=== PATIENT | female | born 1965 | race African-American/Black ===

== ENCOUNTER 2022-08-27 17:07 | Observation (INO) | payer MEDICARE, MEDICAID ==
[2022-08-27] VITALS (10 sets, daily range): BP systolic 142–182; BP diastolic 78–105
[~2022-08-27] VITALS: Ht 162.6 cm; Wt 77.1 kg
[2022-08-27 18:04] LABS: GFR FOR AFR.AMER. > 60 ML/MIN (>=60 (CALC)); GFR OTHER RACES > 60 ML/MIN (>=60 (CALC))
[2022-08-27 18:05] LABS: BASO% 0.5 % (0-3); HEMATOCRIT 43.5 % (37.0-47.0); HEMOGLOBIN 12.7 g/dl (12.0-16.0); IMMATURE GRANULOCYTES 0.2 % (0.0-5.0); LYMPH% 44.7 % (15-41); MEAN CELL VOLUME 73.1 fL CALC (80.0-100.0); MEAN CORPUSCULAR HGB 21.3 pG CALC (26.0-32.0); MEAN CORPUSCULAR HGB CONC 29.2 g/dL CAL (32.0-36.0); MONO% 8.1 % (2-13); NEUT# 2.94 thou/uL (2.00-7.15); NEUT% 44.5 % (42-76); RED BLOOD COUNT 5.95 mill/uL (4.20-5.60); RED CELL DISTRI WIDTH 14.4 % (11.5-15.5)
[2022-08-27 18:19] LABS: ALBUMIN 4.6 g/dL (3.2-5.0); ALKALINE PHOSPHATASE 107 u/l (38-126); ANION GAP 13 (6-22 (CALC)); BILIRUBIN, TOTAL 0.7 mg/dL (0.02-1.3); BUN 16 mg/dL (7-17); BUN/CREATININE RATIO 32 (12-20 (CALC)); CARBON DIOXIDE 24 mmol/l (22-30); CHLORIDE 105 mmol/l (95-108); CREATININE 0.5 mg/dL (0.5-1.0); GFR FOR AFR.AMER. > 60 ML/MIN (>=60 (CALC)); GFR OTHER RACES > 60 ML/MIN (>=60 (CALC)); POTASSIUM 4.6 mmol/l (3.5-5.1); SGOT/AST 53 u/l (14-36); SODIUM 137 mmol/l (137-146); TOTAL PROTEIN 8.7 g/dL (6.3-8.2)
[2022-08-27 18:22] LABS: PROTHROMBIN TIME 9.9 SECONDS (9.0-12.5)
[2022-08-27 21:23] LABS: URINE BILIRUBIN - DIPSTICK NEGATIVE (NEGATIVE); URINE BLOOD DIPSTICK TRACE-INTACT (NEGATIVE); URINE COLOR YELLOW; URINE GLUCOSE - DIPSTICK NEGATIVE (NEGATIVE); URINE KETONE NEGATIVE (NEGATIVE); URINE LEUK ESTERASE NEGATIVE (NEGATIVE); URINE PROTEIN - DIPSTICK NEGATIVE (NEG-TRACE); URINE UROBILINOGEN - DIPSTICK 0.2 E.U./dL (0.2)
[2022-08-27 21:25] LABS: URINE NITRITE - DIPSTICK NEGATIVE (Negative)
[2022-08-27] MEDS ORDERED: NORVASC5 M1 PO (22:27)
[2022-08-28 00:04] VITALS: BP 128/56
[2022-08-28 04:05] VITALS: BP 116/52
[2022-08-28 06:06] LABS: BASO% 0.7 % (0-3); EOS% 2.8 % (0-8); HEMATOCRIT 40.1 % (37.0-47.0); IMMATURE GRANULOCYTES 0.2 % (0.0-5.0); LYMPH% 35.1 % (15-41); MEAN CELL VOLUME 73.6 fL CALC (80.0-100.0); MEAN CORPUSCULAR HGB CONC 29.9 g/dL CAL (32.0-36.0); MONO% 10.3 % (2-13); NEUT# 3.06 thou/uL (2.00-7.15); NEUT% 50.9 % (42-76); RED BLOOD COUNT 5.45 mill/uL (4.20-5.60); RED CELL DISTRI WIDTH 14.3 % (11.5-15.5)
[2022-08-28 06:16] LABS: ALBUMIN 3.8 g/dL (3.2-5.0); ALKALINE PHOSPHATASE 103 u/l (38-126); BUN 17 mg/dL (7-17); BUN/CREATININE RATIO 25 (12-20 (CALC)); CALCULATED LDLCHOLESTEROL 140 mg/dL (62-129 (CALC)); CARBON DIOXIDE 27 mmol/l (22-30); CHLORIDE 107 mmol/l (95-108); CHOLESTEROL HDL RATIO 7.1 (<4.4 (CALC)); CREATININE 0.7 mg/dL (0.5-1.0); GFR FOR AFR.AMER. > 60 ML/MIN (>=60 (CALC)); GFR OTHER RACES > 60 ML/MIN (>=60 (CALC)); HDL CHOLESTEROL 29 mg/dL (39.0-59.0); SGOT/AST 27 u/l (14-36); SODIUM 138 mmol/l (137-146); TOTAL CHOLESTEROL 208 mg/dl (0-199); TOTAL PROTEIN 7.1 g/dL (6.3-8.2); TOTAL TRIGLYCERIDES 195 mg/dl (0-149); VLDL CHOLESTROL 39 mg/dl (2-49 (CALC))
[2022-08-28 06:17] LABS: ANION GAP 8 (6-22 (CALC)); BILIRUBIN, TOTAL 0.2 mg/dL (0.02-1.3); POTASSIUM 3.6 mmol/l (3.5-5.1)
[2022-08-28 07:02] VITALS: BP 124/56
[2022-08-28 10:00] VITALS: BP 153/65
[2022-08-28] MEDS ORDERED: MECLIZINE 2525 MG PO (10:52)
[2022-08-28 15:01] VITALS: BP 139/74
== END 2022-08-28 18:58 | disposition home or self-care (01) ==
LOC: ED 17:07 → ED-I 18:42 → ED 20:11 → MS2 20:12
PROVIDERS: Family Medicine; ADMIT Internal Medicine; ATTEND Internal Medicine
DX: R42 Dizziness and giddiness (principal); I10 Essential (primary) hypertension; E78.5 Hyperlipidemia, unspecified; G82.20 Paraplegia, unspecified; Z99.3 Dependence on wheelchair; Z20.822 Contact with and (suspected) exposure to COVID-19
CPT/HCPCS: G0378; Q9967